=== PATIENT | male | born 1945 | race Caucasian/White ===

== ENCOUNTER 2019-12-29 12:20 | Emergency (ER) | payer OTHER ==
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
[2019-12-29 13:36] VITALS: BP 132/62
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
== END 2019-12-29 13:37 | disposition home or self-care (01) ==
LOC: ED 12:20
DX: S82.241A Displaced spiral fracture of shaft of right tibia, initial encounter for closed fracture (principal); S82.431A Displaced oblique fracture of shaft of right fibula, initial encounter for closed fracture; W22.09XA Striking against other stationary object, initial encounter; I10 Essential (primary) hypertension; Z99.3 Dependence on wheelchair
CPT/HCPCS: 99282; 99284

== ENCOUNTER 2021-06-10 10:54 | Inpatient (IN) | payer OTHER ==
[2021-06-10 11:36] LABS: BASOPHILS % (AUTO) 0.6 %; EOSINOPHILS # (AUTO) 0.1 10^3/uL (0.0-0.7); EOSINOPHILS % (AUTO) 0.9 %; HCT - HEMATOCRIT 29.3 % (42.0-52.0); LYMPHOCYTES # (AUTO) 0.5 10^3/uL (1.5-3.5); LYMPHOCYTES % (AUTO) 7.6 %; MEAN CORPUSCULAR HEMOGLOBIN 34.4 pg (27.0-31.0); MEAN CORPUSCULAR HGB CONC 34.1 g/dL (32.0-36.0); MEAN CORPUSCULAR VOLUME 100.7 fL (80.0-94.0); MEAN PLATELET VOLUME 9.2 fL (7.4-11.4); MONOCYTES # (AUTO) 0.5 10^3/uL (0.0-1.0); MONOCYTES % (AUTO) 7.6 %; NEUTROPHILS # (AUTO) 5.4 10^3/uL (1.5-6.6); NEUTROPHILS % (AUTO) 82.7 %; PLT - PLATELET COUNT 78 10^3/uL (130-450); RED BLOOD COUNT 2.91 10^6/uL (4.70-6.10); RED CELL DISTRIBUTION WIDTH 14.6 % (12.0-15.0); WHITE BLOOD COUNT 6.6 x10^3/uL (4.8-10.8)
[2021-06-10 11:37] LABS: BILIRUBIN,URINE NEGATIVE (NEGATIVE); GLUCOSE, URINE (UA) NEGATIVE (NEGATIVE); KETONES,URINE (UA) NEGATIVE (NEGATIVE); LEUKOCYTE ESTERASE, URINE LARGE (NEGATIVE); NITRITE,URINE POSITIVE (NEGATIVE); OCCULT BLOOD,URINE LARGE (NEGATIVE); PROTEIN,URINE 100 mg/dL (NEGATIVE); UROBILINOGEN,URINE 0.2 (NORMAL) E.U./dL (NORMAL)
[2021-06-10] MEDS ORDERED: SODIUM CHLORIDE 0.9% 1,000 ML IV STA (11:39)
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
[2021-06-10 11:40] LABS: CLARITY,URINE SL. CLOUDY (CLEAR)
[2021-06-10 11:43] LABS: BACTERIA,URINE Few /HPF (None Seen); SQUAMOUS EPITHELIAL CELL,UR RARE Squamous (<= Few)
--- NOTE | 2021-06-10 11:48 | XRAY Report ---
PROCEDURE: Chest 1 View X-Ray INDICATIONS: chest pain TECHNIQUE: One view of the chest was acquired. COMPARISON: None. FINDINGS: Surgical changes and devices: Extensive thoracic spine fusion is seen with surgical hardware in place .. Lungs and pleura: No pleural effusions or pneumothorax. There is mild pulmonary vascular congestion. Increased bronchovascular markings in bilateral hilar region are seen with mild bronchial wall thick ening. No definite focal infiltrate. Mediastinum: Mediastinal contours appear normal. Heart size is enlarged. Bones and chest wall: No suspicious bony lesions. Overlying soft tissues appear unremarkable. IMPRESSION: Finding is concerning for mild reactive airway disease such as bronchitis or asthma. No definite foca l infiltrate. No pneumothorax. Cardiomegaly and mild pulmonary vascular congestion. Reviewed by: Otilio Hooper MD on 06/10/2021 11:47 AM PST Approved by: Otilio Hooper MD on 06/10/2021 11:47 AM PST Station ID: [id number]
[2021-06-10 11:49] LABS: ALBUMIN 3.6 g/dL (3.2-5.5); BILIRUBIN,TOTAL 0.7 mg/dL (0.2-1.0); CALCIUM 9.3 mg/dL (8.5-10.3); CREATININE 5.9 mg/dL (0.6-1.2); POTASSIUM 4.6 mmol/L (3.5-5.0); TOTAL PROTEIN 7.1 g/dL (6.7-8.2)
[2021-06-10] MEDS ORDERED: IOVERSOL 320 100 ML VIAL IVP ONE (11:50)
--- NOTE | 2021-06-10 12:57 | CT Report ---
PROCEDURE: Abdomen/Pelvis WO INDICATIONS: uti; THEODORA TECHNIQUE: Noncontrast 5 mm thick sections acquired from the diaphragms to the symphysis. 5 mm coronal and sagi ttal reformats were then performed. For radiation dose reduction, the following was used: automated exposure control, adjustment of mA and/or kV according to patient size. COMPARISON: None. FINDINGS: Image quality: There is metallic streak artifact from patient's surgical hardware in the thoracolumba r spine. ABDOMEN: Lung bases: There is atelectasis in the lower lobes, left greater than right. A large hiatal hernia is partially visualized. Heart size is normal. Solid organs: Noncontrast evaluation of the liver demonstrates no focal hepatic lesions. All bladder appears within normal limits without calcified gallstones. Pancreas is normal in contours. No adren al nodules. The spleen is enlarged, measuring up to 17.2 cm. The kidneys are atrophic in size, sever e on the right and moderate on the left. No renal stones. There is mild right pelviectasis without ca lyceal dilatation. There are foci of gas within the right renal calyces. There is nonspecific perinep hric and perirenal fat stranding. There is a small stone in the distal right ureter measuring up to 0 .3 cm but there is no hydroureter. There is also mild left pelviectasis and mild dilatation of the le ft ureter without a discrete ureteral stone identified. There is mild nonspecific left perinephric an d perirenal fat stranding also demonstrated. Peritoneum and bowel: Small and large bowel loops demonstrate normal wall thickness and caliber. No evidence of appendicitis. There is colonic diverticulosis throughout the colon without acute divertic ulitis. No free fluid or air. Nodes and vessels: No retroperitoneal or mesenteric adenopathy by size criteria. Aorta and inferior vena cava are normal in caliber. Miscellaneous: No ventral hernias. PELVIS: Genitourinary: The urinary bladder is nondistended with a Harris catheter present. There is associated mild fat stranding along the bladder wall suggestive of a cystitis. There is intraluminal gas within the bladder likely from catheterization. Miscellaneous: No inguinal hernias or adenopathy. There is moderate fatty atrophy of the visualized paraspinous, pelvic, and lower extremity musculature. Bones: No suspicious bony lesions. There is osteopenia. Postsurgical changes are partially visualiz ed status post posterior fixation and fusion in the lower thoracic and upper lumbar spine. There is a severe anterior compression deformity of the L1 vertebral body which is likely nonacute. No definite acute fractures. IMPRESSION: 1. Nondistended bladder with a Harris catheter in place. There is mild bladder wall thickening suggest tawanna of a cystitis. 2. Mild bilateral perinephric and perirenal fat stranding are nonspecific but pyelonephritis cannot b e excluded. 3. Small foci of gas within the right renal cortical system are nonspecific and may reflect retrograd e gas extension from the bladder, but the differential includes infection from a gas-forming organism . 4. Small urinary stone in the distal right ureter without associated hydroureter. Mild pelviectasis o f the right renal collecting system is demonstrated without calyceal dilatation to suggest definite h ydronephrosis. 5. Mild dilatation of the left renal collection system and left ureter without an obstructing stone i dentified. 6. Large hiatal hernia and bibasilar atelectasis. 7. Colonic diverticulosis. Reviewed by: Dalton Palomo MD on 06/10/2021 12:55 PM PST Approved by: Dalton Palomo MD on 06/10/2021 12:55 PM PST Station ID: [id number]
[2021-06-10] MEDS ORDERED: cefTRIAXone 1 GM in SODIUM CHLORIDE 0.9% MINIBAG 100 ML IV STA (13:02)
[2021-06-10 14:18] LABS: B. PARAPERTUSSIS- RESP PCR PAN NOT DETECTED; B. PERTUSSIS- RESP PCR PANEL NOT DETECTED; C. PNEUMONIAE- RESP PCR PANEL NOT DETECTED; CORONAVIRUS 229E-RESP PCR NOT DETECTED; CORONAVIRUS HKU1-RESP PCR NOT DETECTED; CORONAVIRUS NL63-RESP PCR NOT DETECTED; CORONAVIRUS OC43-RESP PCR NOT DETECTED; HUMAN METAPNEUMOVIRUS NOT DETECTED; INFLUENZA A- RESP PCR PANEL NOT DETECTED; INFLUENZA B - RESP PCR PANEL NOT DETECTED; M. PNEUMONIAE- RESP PCR PANEL NOT DETECTED; PARAINFLUENZA VIRUS 1 NOT DETECTED; PARAINFLUENZA VIRUS 2 NOT DETECTED; PARAINFLUENZA VIRUS 3 NOT DETECTED; PARAINFLUENZA VIRUS 4 NOT DETECTED; RHINOVIRUS/ENTEROVIRUS NOT DETECTED; RSV- RESP PCR PANEL NOT DETECTED; SARS-CoV-2 -RESP PCR PANEL NOT DETECTED
[2021-06-10] MEDS ORDERED: ONDANSETRON 4 MG/2 ML VIAL IVP PRN (16:19)
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
[2021-06-10] MEDS ORDERED: MORPHINE 2 MG/ML CARPUJECT IVP PRN (16:45)
[2021-06-10 16:52] LABS: MAGNESIUM 2.3 mg/dL (1.7-2.8); PHOSPHORUS 6.4 mg/dL (2.5-4.6)
[2021-06-10 16:58] LABS: MUDS CUTOFF CONCENTRATIONS CUTOFF CONC BELOW:
[2021-06-10] MEDS ORDERED: SODIUM CHLORIDE 0.9% 1,000 ML IV SCH (17:00)
[2021-06-10 17:10] LABS: AMPHETAMINE SCREEN,URINE NEGATIVE (NEGATIVE); BARBITURATE SCREEN,UR NEGATIVE (NEGATIVE); BENZODIAZEPINES SCREEN, URINE NEGATIVE (NEGATIVE); COCAINE SCREEN URINE NEGATIVE (NEGATIVE); METHADONE SCREEN, URINE NEGATIVE (NEGATIVE); METHAMPHETAMINES SCREEN, URINE NEGATIVE (NEGATIVE); OPIATE SCREEN, URINE NEGATIVE (NEGATIVE); OXYCODONE SCREEN, URINE NEGATIVE (NEGATIVE); PROPOXYPHENE SCREEN, URINE NEGATIVE (NEGATIVE); THC CANNABINOID SCREEN, URINE NEGATIVE (NEGATIVE); TRICYCLIC ANTIDEPRESSANT,URINE NEGATIVE (NEGATIVE)
[2021-06-10] MEDS: SODIUM CHLORIDE FLUSH 0.9% 10 ML SYRINGE IVP SCH (17:25)
[2021-06-10] MEDS: ACETAMINOPHEN 325 MG TABLET PO PRN ×2 (17:32→22:06)
[2021-06-10] MEDS ORDERED: hydrALAZINE INJ 20 MG/ML VIAL IVP PRN (17:39)
[2021-06-10] MEDS ORDERED: LIDOCAINE PATCH 5% TOP PRN (18:00)
[2021-06-10] MEDS: SEVELAMER 800 MG TABLET PO SCH (18:43)
[2021-06-10] MEDS: SODIUM CHLORIDE 0.9% 1,000 ML IV SCH (18:43)
--- NOTE | 2021-06-10 18:55 | PHARMACY PROGRESS NOTE ---
- Best Possible Medication History Admit Date and Time: 06/10/21 1619 Processed by: Pharmacy Medication History completed: Yes Patient Interview: Pt unable to participate Secondary Source(s): Pharmacy records, Insurance records ([employer] REQUEST) As the person ultimately responsible for medication therapy, providers are able to order a medication from an existing home medication list in [facility] via the "Reconcile Routine" prior to Confirmation of that medication by operations support professionals. Such practice is discouraged except when the physician, in their clinical judgment, deems that a medical need exists for a medication without regard to previous use.
[2021-06-10] MEDS: ATORVASTATIN 40 MG TABLET PO SCH (20:13)
[2021-06-10] MEDS: SENNA 8.6 MG TABLET PO SCH (20:13)
[2021-06-10] MEDS ORDERED: HEPARIN 5,000 UNIT/ML VIAL SUBQ SCH (21:00)
[2021-06-11] MEDS ORDERED: traZODone 50 MG TABLET PO STA (00:02)
[2021-06-11] MEDS: SODIUM CHLORIDE FLUSH 0.9% 10 ML SYRINGE IVP SCH ×4 (01:30→23:36)
[2021-06-11] MEDS: SODIUM CHLORIDE 0.9% 1,000 ML IV SCH (04:48)
[2021-06-11 05:20] LABS: BASOPHILS % (AUTO) 0.4 %; EOSINOPHILS # (AUTO) 0.2 10^3/uL (0.0-0.7); EOSINOPHILS % (AUTO) 2.3 %; HGB - HEMOGLOBIN 9.9 g/dL (14.0-18.0); LYMPHOCYTES # (AUTO) 0.5 10^3/uL (1.5-3.5); LYMPHOCYTES % (AUTO) 6.7 %; MEAN CORPUSCULAR HEMOGLOBIN 33.7 pg (27.0-31.0); MEAN PLATELET VOLUME 9.7 fL (7.4-11.4); MONOCYTES # (AUTO) 0.5 10^3/uL (0.0-1.0); MONOCYTES % (AUTO) 7.8 %; NEUTROPHILS # (AUTO) 5.7 10^3/uL (1.5-6.6); NEUTROPHILS % (AUTO) 82.4 %; PLT - PLATELET COUNT 83 10^3/uL (130-450); RED BLOOD COUNT 2.94 10^6/uL (4.70-6.10); RED CELL DISTRIBUTION WIDTH 14.6 % (12.0-15.0); WHITE BLOOD COUNT 6.9 x10^3/uL (4.8-10.8)
[2021-06-11 05:33] LABS: CALCIUM 8.9 mg/dL (8.5-10.3); CREATININE 5.7 mg/dL (0.6-1.2); MAGNESIUM 2.2 mg/dL (1.7-2.8); PHOSPHORUS 6.4 mg/dL (2.5-4.6); POTASSIUM 4.8 mmol/L (3.5-5.0)
[2021-06-11] MEDS: LEVOTHYROXINE 100 MCG TABLET PO SCH (07:15)
[2021-06-11] MEDS: ACETAMINOPHEN 325 MG TABLET PO PRN ×2 (07:16→21:16)
[2021-06-11] MEDS ORDERED: ALBUTEROL NEB 2.5 MG/3 ML INH PRN (07:20)
[2021-06-11] MEDS: IPRATROPIUM/ALBUTEROL 3 ML NEB INH PRN (07:53)
[2021-06-11] MEDS ORDERED: LABETALOL 20 MG/4 ML SYRINGE IVP ONE ×2 (07:55→08:05)
[2021-06-11] MEDS ORDERED: NITROGLYCERIN 2% PASTE TOP ONE (08:00)
[2021-06-11] MEDS: SEVELAMER 800 MG TABLET PO SCH ×2 (08:01→17:30)
[2021-06-11] MEDS: SENNA 8.6 MG TABLET PO SCH (08:01)
--- NOTE | 2021-06-11 08:45 | XRAY Report ---
PROCEDURE: Chest 1 View X-Ray INDICATIONS: SOB TECHNIQUE: One view of the chest was acquired. COMPARISON: 06/10/2021 FINDINGS: Surgical changes and devices: Karina rods. Lungs and pleura: Significant interval worsening of pulmonary status. Consider bilateral pulmonary ed frank versus bilateral pneumonia. Mediastinum: Mediastinal contours appear normal. Cardiomegaly. Bones and chest wall: No suspicious bony lesions. Overlying soft tissues appear unremarkable. IMPRESSION: Significant interval worsening of pulmonary status. Consider bilateral pulmonary edema versus bilater al pneumonia. Reviewed by: Paddy Hart MD on 06/11/2021 8:43 AM PST Approved by: Paddy Hart MD on 06/11/2021 8:43 AM PST Station ID: [id number]
[2021-06-11] MEDS ORDERED: cefTRIAXone 1 GM in SODIUM CHLORIDE 0.9% MINIBAG 100 ML IV SCH (09:00)
[2021-06-11] MEDS: amLODIPine 5 MG TABLET PO SCH (09:10)
[2021-06-11] MEDS: ASPIRIN EC 81 MG TABLET PO SCH (09:10)
[2021-06-11] MEDS: MEROPENEM 1 GM in SODIUM CHLORIDE 0.9% MINIBAG 100 ML IV SCH ×2 (09:22→21:15)
[2021-06-11] MEDS: BISACODYL 10 MG SUPP PR SCH (09:22)
[2021-06-11] MEDS ORDERED: FUROSEMIDE 20 MG/2 ML VIAL IVP ONE (09:29)
[2021-06-11] MEDS ORDERED: AZITHROMYCIN 250 MG TABLET PO ONE (10:00)
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
[2021-06-11] MEDS: TORSEMIDE 20 MG TABLET PO SCH (10:57)
[2021-06-11] MEDS: ATORVASTATIN 40 MG TABLET PO SCH (21:16)
[2021-06-11] MEDS: SODIUM CHLORIDE FLUSH 0.9% 10 ML SYRINGE IVP PRN (21:20)
[2021-06-11] MEDS: ZOLPIDEM 5 MG TABLET PO PRN (22:27)
[2021-06-12] MEDS: ACETAMINOPHEN 325 MG TABLET PO PRN ×3 (03:47→21:08)
[2021-06-12] MEDS: IPRATROPIUM/ALBUTEROL 3 ML NEB INH PRN (04:03)
[2021-06-12 05:49] LABS: BASOPHILS % (AUTO) 0.6 %; EOSINOPHILS # (AUTO) 0.1 10^3/uL (0.0-0.7); EOSINOPHILS % (AUTO) 0.8 %; HCT - HEMATOCRIT 28.6 % (42.0-52.0); HGB - HEMOGLOBIN 9.5 g/dL (14.0-18.0); LYMPHOCYTES # (AUTO) 0.3 10^3/uL (1.5-3.5); LYMPHOCYTES % (AUTO) 4.5 %; MEAN CORPUSCULAR HEMOGLOBIN 33.7 pg (27.0-31.0); MEAN CORPUSCULAR HGB CONC 33.2 g/dL (32.0-36.0); MEAN CORPUSCULAR VOLUME 101.4 fL (80.0-94.0); MEAN PLATELET VOLUME 9.7 fL (7.4-11.4); MONOCYTES # (AUTO) 0.5 10^3/uL (0.0-1.0); MONOCYTES % (AUTO) 7.5 %; NEUTROPHILS # (AUTO) 6.1 10^3/uL (1.5-6.6); NEUTROPHILS % (AUTO) 85.9 %; PLT - PLATELET COUNT 99 10^3/uL (130-450); RED BLOOD COUNT 2.82 10^6/uL (4.70-6.10); RED CELL DISTRIBUTION WIDTH 14.4 % (12.0-15.0); WHITE BLOOD COUNT 7.1 x10^3/uL (4.8-10.8)
[2021-06-12 06:03] LABS: CREATININE 5.8 mg/dL (0.6-1.2); MAGNESIUM 2.1 mg/dL (1.7-2.8); PHOSPHORUS 6.4 mg/dL (2.5-4.6); POTASSIUM 4.6 mmol/L (3.5-5.0)
[2021-06-12] MEDS: LEVOTHYROXINE 100 MCG TABLET PO SCH (06:13)
[2021-06-12] MEDS ORDERED: LEVALBUTEROL 1.25 MG/3 ML NEB INH PRN (07:15)
[2021-06-12] MEDS: amLODIPine 5 MG TABLET PO SCH (09:04)
[2021-06-12] MEDS: SENNA 8.6 MG TABLET PO SCH (09:05)
[2021-06-12] MEDS: TORSEMIDE 20 MG TABLET PO SCH (09:05)
[2021-06-12] MEDS: ASPIRIN EC 81 MG TABLET PO SCH (09:06)
[2021-06-12] MEDS: AZITHROMYCIN 250 MG TABLET PO SCH (09:06)
[2021-06-12] MEDS: SEVELAMER 800 MG TABLET PO SCH ×2 (09:06→17:00)
[2021-06-12] MEDS: BISACODYL 10 MG SUPP PR SCH (09:07)
[2021-06-12] MEDS: SODIUM CHLORIDE FLUSH 0.9% 10 ML SYRINGE IVP SCH ×2 (09:09→17:00)
[2021-06-12] MEDS: MEROPENEM 1 GM in SODIUM CHLORIDE 0.9% MINIBAG 100 ML IV SCH (09:12)
[2021-06-12] MEDS: CEFEPIME 1 GM in SODIUM CHLORIDE 0.9% MINIBAG 100 ML IV SCH (10:40)
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
[2021-06-12] MEDS: ATORVASTATIN 40 MG TABLET PO SCH (21:03)
[2021-06-12] MEDS: SODIUM CHLORIDE FLUSH 0.9% 10 ML SYRINGE IVP PRN (21:09)
[2021-06-12] MEDS: ZOLPIDEM 5 MG TABLET PO PRN (21:17)
[2021-06-13] MEDS: SODIUM CHLORIDE FLUSH 0.9% 10 ML SYRINGE IVP SCH ×4 (00:39→23:51)
[2021-06-13 05:47] LABS: BASOPHILS % (AUTO) 0.6 %; EOSINOPHILS # (AUTO) 0.2 10^3/uL (0.0-0.7); EOSINOPHILS % (AUTO) 2.1 %; HCT - HEMATOCRIT 30.3 % (42.0-52.0); HGB - HEMOGLOBIN 10.2 g/dL (14.0-18.0); LYMPHOCYTES # (AUTO) 0.3 10^3/uL (1.5-3.5); LYMPHOCYTES % (AUTO) 4.5 %; MEAN CORPUSCULAR HGB CONC 33.7 g/dL (32.0-36.0); MEAN PLATELET VOLUME 9.8 fL (7.4-11.4); MONOCYTES # (AUTO) 0.6 10^3/uL (0.0-1.0); MONOCYTES % (AUTO) 7.7 %; PLT - PLATELET COUNT 120 10^3/uL (130-450); RED CELL DISTRIBUTION WIDTH 14.3 % (12.0-15.0); WHITE BLOOD COUNT 7.2 x10^3/uL (4.8-10.8)
[2021-06-13 05:55] LABS: CALCIUM 9.3 mg/dL (8.5-10.3); CREATININE 5.6 mg/dL (0.6-1.2); POTASSIUM 4.8 mmol/L (3.5-5.0)
[2021-06-13] MEDS: LEVOTHYROXINE 100 MCG TABLET PO SCH (06:21)
[2021-06-13] MEDS: TORSEMIDE 20 MG TABLET PO SCH (10:49)
[2021-06-13] MEDS: SENNA 8.6 MG TABLET PO SCH (10:49)
[2021-06-13] MEDS: AZITHROMYCIN 250 MG TABLET PO SCH (10:49)
[2021-06-13] MEDS: SEVELAMER 800 MG TABLET PO SCH ×2 (10:50→17:24)
[2021-06-13] MEDS: amLODIPine 5 MG TABLET PO SCH (10:53)
[2021-06-13] MEDS: ASPIRIN EC 81 MG TABLET PO SCH (10:55)
[2021-06-13] MEDS: CEFEPIME 1 GM in SODIUM CHLORIDE 0.9% MINIBAG 100 ML IV SCH (10:57)
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
[2021-06-13] MEDS: BISACODYL 10 MG SUPP PR SCH (14:23)
[2021-06-13] MEDS: ATORVASTATIN 40 MG TABLET PO SCH (21:07)
[2021-06-13] MEDS: ACETAMINOPHEN 325 MG TABLET PO PRN (23:50)
[2021-06-14 05:54] LABS: BASOPHILS # (AUTO) 0.1 10^3/uL (0.0-0.1); BASOPHILS % (AUTO) 0.9 %; EOSINOPHILS # (AUTO) 0.9 10^3/uL (0.0-0.7); EOSINOPHILS % (AUTO) 14.5 %; HCT - HEMATOCRIT 28.9 % (42.0-52.0); HGB - HEMOGLOBIN 9.2 g/dL (14.0-18.0); LYMPHOCYTES # (AUTO) 0.5 10^3/uL (1.5-3.5); LYMPHOCYTES % (AUTO) 7.7 %; MEAN CORPUSCULAR HEMOGLOBIN 33.2 pg (27.0-31.0); MEAN CORPUSCULAR HGB CONC 31.8 g/dL (32.0-36.0); MEAN CORPUSCULAR VOLUME 104.3 fL (80.0-94.0); MONOCYTES # (AUTO) 0.5 10^3/uL (0.0-1.0); MONOCYTES % (AUTO) 8.4 %; NEUTROPHILS # (AUTO) 3.9 10^3/uL (1.5-6.6); PLT - PLATELET COUNT 125 10^3/uL (130-450); RED BLOOD COUNT 2.77 10^6/uL (4.70-6.10); RED CELL DISTRIBUTION WIDTH 14.6 % (12.0-15.0); WHITE BLOOD COUNT 5.9 x10^3/uL (4.8-10.8)
[2021-06-14] MEDS: LEVOTHYROXINE 100 MCG TABLET PO SCH (07:41)
[2021-06-14] MEDS: ACETAMINOPHEN 325 MG TABLET PO PRN ×3 (07:44→23:46)
[2021-06-14] MEDS: SEVELAMER 800 MG TABLET PO SCH ×2 (07:47→16:42)
[2021-06-14] MEDS: SODIUM CHLORIDE FLUSH 0.9% 10 ML SYRINGE IVP SCH ×2 (08:45→16:42)
[2021-06-14] MEDS: CEFEPIME 1 GM in SODIUM CHLORIDE 0.9% MINIBAG 100 ML IV SCH (08:45)
[2021-06-14] MEDS: amLODIPine 5 MG TABLET PO SCH (08:47)
[2021-06-14] MEDS: TORSEMIDE 20 MG TABLET PO SCH (08:47)
[2021-06-14] MEDS: AZITHROMYCIN 250 MG TABLET PO SCH (08:47)
[2021-06-14] MEDS: ASPIRIN EC 81 MG TABLET PO SCH (08:47)
[2021-06-14] MEDS: BISACODYL 10 MG SUPP PR SCH (08:52)
[2021-06-14] MEDS ORDERED: ZINC OXIDE 20% OINT 30 GM TUBE TOP PRN (09:13)
[2021-06-14 09:53] LABS: CALCIUM 9.2 mg/dL (8.5-10.3); CREATININE 5.6 mg/dL (0.6-1.2); POTASSIUM 4.5 mmol/L (3.5-5.0)
[2021-06-14] MEDS: SENNA 8.6 MG TABLET PO SCH (10:16)
[2021-06-14] MEDS: SODIUM CHLORIDE FLUSH 0.9% 10 ML SYRINGE IVP PRN (12:42)
[2021-06-14] MEDS ORDERED: SODIUM CHLORIDE 0.45% 1,000 ML IV SCH (13:00)
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
--- NOTE | 2021-06-14 15:41 | XRAY Report ---
PROCEDURE: Chest 1 View X-Ray INDICATIONS: sputum, cough TECHNIQUE: One view of the chest was acquired. COMPARISON: 06/11/2021 FINDINGS: Surgical changes and devices: Partially visualized thoracolumbar spinal fixation hardware as before. Lungs and pleura: Improved aeration of the right mid lung and lower lobe. Left perihilar mild patch y consolidative opacity is noted and may be slightly increased; there is retrocardiac consolidation a s before. Possible small left pleural effusion. No pneumothorax Mediastinum: Cardiac silhouette and mediastinal contours grossly unchanged. Bones and chest wall: No suspicious bony lesions. Overlying soft tissues appear unremarkable. IMPRESSION: Improved aeration of the right midlung and lower lobe. Slightly increased left perihilar opacity sinc e 06/11/2021. Persistent retrocardiac consolidation is unchanged Reviewed by: Taurus Lowery MD on 06/14/2021 3:40 PM PST Approved by: Taurus Lowery MD on 06/14/2021 3:40 PM PST Station ID: [id number]
--- NOTE | 2021-06-14 15:43 | XRAY Report ---
PROCEDURE: Chest for Line Placement INDICATIONS: PICC line TECHNIQUE: One view of the chest was acquired. COMPARISON: Chest x-ray one view, 06/11/2021 and 06/14/2021. FINDINGS: Surgical changes and devices: There is a right-sided PICC line with the tip projecting to the area of SVC. Lungs and pleura: Bilateral interstitial infiltrates. There are basilar consolidations or atelectasi s. Small left effusion and trace right pleural effusion. No pneumothorax. Mediastinum: Mediastinal contours appear normal. Heart size is normal. Bones and chest wall: Thoracic and upper lumbar spine fusion. No suspicious bony lesions. Overlying soft tissues appear unremarkable. IMPRESSION: 1. The tip the right PICC is in the area of SVC. Reviewed by: Shane Tinoco MD on 06/14/2021 3:41 PM PST Approved by: Shane Tinoco MD on 06/14/2021 3:41 PM PST Station ID: [id number]
--- NOTE | 2021-06-14 15:57 | ANESTHESIA PROCEDURE NOTE ---
Anesth Central Line Template - Central Line Central Line Preparation: Consent Obtained, Time out completed, Ultrasound used, Sterile prep and drape Central line location: Right Basilic Central line type: PICC Double Lumen Central line catheter tip site resides: Subclavian vein Central line aftercare: Secured (statlock), Placement confirmed, No complications, Bundle checklist complete, Pt tolerated well
[2021-06-14] MEDS: ATORVASTATIN 40 MG TABLET PO SCH (20:09)
[2021-06-14] MEDS ORDERED: SENNA 8.6 MG TABLET PO SCH (21:00)
[2021-06-15] MEDS: ZOLPIDEM 5 MG TABLET PO PRN (00:27)
[2021-06-15] MEDS: SODIUM CHLORIDE FLUSH 0.9% 10 ML SYRINGE IVP SCH ×2 (01:51→09:22)
[2021-06-15] MEDS: LEVOTHYROXINE 100 MCG TABLET PO SCH (05:29)
[2021-06-15 05:35] LABS: EOSINOPHILS % (AUTO) 16.5 %; HCT - HEMATOCRIT 27.2 % (42.0-52.0); HGB - HEMOGLOBIN 8.9 g/dL (14.0-18.0); LYMPHOCYTES % (AUTO) 8.5 %; MEAN CORPUSCULAR HEMOGLOBIN 33.1 pg (27.0-31.0); MEAN CORPUSCULAR HGB CONC 32.7 g/dL (32.0-36.0); MEAN CORPUSCULAR VOLUME 101.1 fL (80.0-94.0); MEAN PLATELET VOLUME 9.5 fL (7.4-11.4); NEUTROPHILS % (AUTO) 64.4 %; PLT - PLATELET COUNT 151 10^3/uL (130-450); RED BLOOD COUNT 2.69 10^6/uL (4.70-6.10); RED CELL DISTRIBUTION WIDTH 14.3 % (12.0-15.0); WHITE BLOOD COUNT 6.1 x10^3/uL (4.8-10.8)
[2021-06-15 05:37] LABS: ABNORMAL LYMPHS % (MANUAL) 0 %; BAND NEUTROPHILS % (MANUAL) 0 %
[2021-06-15 05:50] LABS: POTASSIUM 4.7 mmol/L (3.5-5.0)
[2021-06-15 05:51] LABS: CREATININE 5.4 mg/dL (0.6-1.2)
[2021-06-15 05:54] LABS: EOSINOPHILS # (MANUAL) 1.3 10^3/uL (0-0.7); LYMPHOCYTES # (MANUAL) 0.4 10^3/uL (1.5-3.5); LYMPHOCYTES % (MANUAL) 6 %; MONOCYTES # (MANUAL) 0.4 10^3/uL (0.0-1.0); NEUTROPHILS # (MANUAL) 4.1 10^3/uL (1.5-6.6)
[2021-06-15 05:55] LABS: DIFFERENTIAL COMMENT MANUAL DIFFERENTIAL; PLATELET ESTIMATE, MANUAL NORMAL (130-450,000) (NORMAL); PLATELET MORPHOLOGY NORMAL APPEARANCE (NORMAL); RBC MORPHOLOGY (MULTIPLE) NORMAL APPEARANCE (NORMAL); WBC MORPHOLOGY (MULTIPLE) NORMAL APPEARANCE (NORMAL)
[2021-06-15 07:57] LABS: ABSOLUTE RETICS # AUTO 0.027 10^6/uL (0.020-0.110); RED BLOOD COUNT 2.73 10^6/uL (4.70-6.10); RETICULOCYTE COUNT % (AUTO) 0.98 % (0.5-2.3)
[2021-06-15 08:17] LABS: % IRON SATURATION 31 % (20-50); IRON 64 ug/dL (45-182); TOTAL IRON BINDING CAPACITY 209 ug/dL (250-450); TRANSFERRIN 149 mg/dL (180-329)
[2021-06-15] MEDS: BISACODYL 10 MG SUPP PR SCH (09:11)
[2021-06-15] MEDS: amLODIPine 5 MG TABLET PO SCH (09:14)
[2021-06-15] MEDS: SEVELAMER 800 MG TABLET PO SCH (09:14)
[2021-06-15] MEDS: ACETAMINOPHEN 325 MG TABLET PO PRN (09:15)
[2021-06-15] MEDS: TORSEMIDE 20 MG TABLET PO SCH (09:15)
[2021-06-15] MEDS: ASPIRIN EC 81 MG TABLET PO SCH (09:15)
[2021-06-15] MEDS: AZITHROMYCIN 250 MG TABLET PO SCH (09:16)
[2021-06-15] MEDS: CEFEPIME 1 GM in SODIUM CHLORIDE 0.9% MINIBAG 100 ML IV SCH (09:17)
--- NOTE | 2021-06-15 09:35 | CT Report ---
PROCEDURE: CHEST WO INDICATIONS: hemoptysis TECHNIQUE: Noncontrast 1mm axial images were acquired from the pulmonary apices to the posterior costophrenic an gles. Axial 5 mm soft tissue kernel reconstructions were performed as well as 8 mm axial MIP and cor onal and sagittal 5 mm reformations. For radiation dose reduction, the following was used: automate d exposure control, adjustment of mA and/or kV according to patient size. COMPARISON: CT abdomen and pelvis dated 06/10/2021 FINDINGS: Lungs: Scattered perihilar groundglass opacities. Diffuse peribronchial cuffing suggestive of nonspec ific bronchitis and/or reactive airways disease. Scattered subsegmental scarring/atelectasis. No acut e consolidation. Pleura: Small bilateral pleural effusions with adjacent atelectasis. Heart: Normal in size. Severe coronary atherosclerosis. No pericardial effusion. Lymph nodes: Normal. Thyroid: Not well seen Aorta: Normal in size. Tortuous appearance and scattered atheromatous calcifications. Pulmonary arteries: Normal. Esophagus: Large hiatal hernia. Bones: Diffuse spondolytic changes and facet arthropathy. No compression fracture. Upper abdomen: Focus of gas present within the right kidney/renal collecting system of unclear etiolo gy. There is bilateral renal atrophy. Mild bilateral gynecomastia. IMPRESSION: Small bilateral pleural effusions with adjacent atelectasis. Scattered groundglass opacities which are technically indeterminate, potentially this could represent pulmonary edema in the setting of chronic renal failure. This could also reflect pulmonary hemorrhag e related to Goodpasture's syndrome given the severe renal disease and clinical indication of hemopty sis. Please correlate clinically. If there is persistent clinical diagnostic uncertainty, recommend s hort interval radiographic follow-up after treatment for further assessment. Recommend clinical and l aboratory correlation to exclude underlying infection. Severe coronary atherosclerosis Large hiatal hernia Scattered foci of gas within the right renal collecting system unchanged. Unchanged differential as l isted on the prior study report, and recommend clinical and urinalysis correlation. CLINICAL RECOMMENDATION STATEMENTS: In patients <35 years with an ITN detected on CT, MRI, or extrathyroidal ultrasound, the Committee re commends further evaluation with dedicated thyroid ultrasound if the nodule is "e1 cm and has no susp icious imaging features, and if the patient has normal life expectancy. In patients "e35 years with an ITN detected on CT, MRI, or extrathyroidal ultrasound, the Committee r ecommends further evaluation with dedicated thyroid ultrasound if the nodule is "e1.5 cm and has no s uspicious imaging features, and if the patient has normal life expectancy. (ACR, 2014) Reviewed by: Taurus Lowery MD on 06/15/2021 9:34 AM PST Approved by: Taurus Lowery MD on 06/15/2021 9:34 AM PST Station ID: [id number]
[2021-06-15 12:37] VITALS: BP 161/70
--- NOTE | 2021-06-15 14:12 | Discharge Plan ---
Discharge Plan Problem Reviewed?: Yes Disposition: Home, Self Care Condition: Stable Prescriptions: Cefepime 1 gm IV DAILY #9 ml Sevelamer [Renagel] 800 mg PO BIDWM #30 tablet Diet: Regular Activity Restrictions: Activity as Tolerated Shower Restrictions: No (fall precaution) Assistance Devices: Wheelchair Instruction Topics: Cefepime injection, Sevelamer capsules or tablets Health Concerns: pyelonephritis, renal failure Plan of Treatment: You was prescribed Cefepime IV to home to finish the treatment course. you have PICC line for IV. Your daughter had experience and trained to have IV meds for you. gas plant worker help arrange to deliver medication Cefepime to you. You have a schedule to see your lepidopterist after tomorrow, please see Dr. Saunders on the schedule to discuss the care plan for your renal failure care. You may followup with your PCP to have CXR in one week to monitor your pneumonia. Care Goals: Stabilization, and improvement of your kidney function Assessment: Discussed the care plan with you, answered your question, you understood. you really hope to discharge to home on today. Additional Instructions or Follow Up instructions: You may follow-up with your PCP in 1 week, follow-up with your lepidopterist after tomorrow, Should your symptoms return or worsen, you may present to the ER or call 911 for help No Smoking: If you smoke, Please STOP! Call for help. Follow-up with: TARYN VILLEGAS [Primary Care Provider] -
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
== END 2021-06-15 15:35 | disposition home or self-care (01) | DRG 698 ==
LOC: ED 10:54 → MS2 16:19 → OBSVTOIN 06-12 13:28
PROVIDERS: ADMIT Nurse Practitioner Gerontology; ATTEND Nurse Practitioner Gerontology
PROC: 02HV33Z Insertion of Infusion Device into Superior Vena Cava, Percutaneous Approach (ICD-10-PCS; principal; 2021-06-14)
PROC: B548ZZA Ultrasonography of Superior Vena Cava, Guidance (ICD-10-PCS; 2021-06-14)
DX: T83.518A Infection and inflammatory reaction due to other urinary catheter, initial encounter (principal); J18.9 Pneumonia, unspecified organism; N10 Acute pyelonephritis; N18.5 Chronic kidney disease, stage 5; I12.0 Hypertensive chronic kidney disease with stage 5 chronic kidney disease or end stage renal disease; N20.1 Calculus of ureter; G82.20 Paraplegia, unspecified; R04.2 Hemoptysis; Z16.30 Resistance to unspecified antimicrobial drugs; G90.4 Autonomic dysreflexia; B96.5 Pseudomonas (aeruginosa) (mallei) (pseudomallei) as the cause of diseases classified elsewhere; S24.103S Unspecified injury at T7-T10 level of thoracic spinal cord, sequela; D64.9 Anemia, unspecified; E03.9 Hypothyroidism, unspecified; E78.5 Hyperlipidemia, unspecified; Z20.822 Contact with and (suspected) exposure to COVID-19; Z79.899 Other long term (current) drug therapy; Z87.440 Personal history of urinary (tract) infections
CPT/HCPCS: 0202U; 36415; 51702; 71045; 71250; 74176; 80048; 80053; 80306; 81001; 82607; 82728; 83540; 83605; 83615; 83690; 83735; 84100; 84443; 84466; 85025; 85045; 87040; 87077; 87086; 87181; 94640; 96365; 96366; 96367; 96375; 99284; 99285; A9270; C1751; G0378; J2185; 81003

== ENCOUNTER 2022-02-16 12:25 | Outpatient (CLI) | payer OTHER | END 2022-02-16 12:26 | disposition short-term general hospital (02) | LOC: EMS 12:25 | DX: R41.82 Altered mental status, unspecified (principal); R44.3 Hallucinations, unspecified; R09.89 Other specified symptoms and signs involving the circulatory and respiratory systems | CPT/HCPCS: A0425; A0429 ==

== ENCOUNTER 2022-03-28 14:21 | Outpatient (CLI) | payer OTHER ==
[2022-03-28 14:40] LABS: BASOPHILS # (AUTO) 0.1 10^3/uL (0.0-0.1); BASOPHILS % (AUTO) 0.7 %; EOSINOPHILS # (AUTO) 0.6 10^3/uL (0.0-0.7); EOSINOPHILS % (AUTO) 8.3 %; HCT - HEMATOCRIT 30.8 % (42.0-52.0); HGB - HEMOGLOBIN 9.8 g/dL (14.0-18.0); LYMPHOCYTES # (AUTO) 0.6 10^3/uL (1.5-3.5); LYMPHOCYTES % (AUTO) 8.6 %; MEAN CORPUSCULAR HEMOGLOBIN 32.3 pg (27.0-31.0); MEAN CORPUSCULAR HGB CONC 31.8 g/dL (32.0-36.0); MEAN CORPUSCULAR VOLUME 101.7 fL (80.0-94.0); MONOCYTES # (AUTO) 0.7 10^3/uL (0.0-1.0); MONOCYTES % (AUTO) 10.5 %; NEUTROPHILS # (AUTO) 4.8 10^3/uL (1.5-6.6); PLT - PLATELET COUNT 151 10^3/uL (130-450); RED BLOOD COUNT 3.03 10^6/uL (4.70-6.10); RED CELL DISTRIBUTION WIDTH 19.4 % (12.0-15.0); WHITE BLOOD COUNT 6.8 x10^3/uL (4.8-10.8)
[2022-03-28 15:32] LABS: CALCIUM 8.9 mg/dL (8.5-10.3); CREATININE 3.9 mg/dL (0.6-1.2); CRP - C-REACTIVE PROTEIN 7.7 mg/dL (0-1.0); POTASSIUM 4.7 mmol/L (3.5-5.0)
== END 2022-03-28 14:22 | disposition home or self-care (01) ==
LOC: LAB.R 14:21
PROVIDERS: ATTEND Internal Medicine Infectious Disease
DX: M86.18 Other acute osteomyelitis, other site (principal); L89.159 Pressure ulcer of sacral region, unspecified stage
CPT/HCPCS: 80048; 85025; 85651; 86140

== ENCOUNTER 2023-05-29 08:00 | Outpatient (CLI) | payer OTHER | END 2023-05-29 23:59 | disposition home or self-care (01) | LOC: LAB.R 08:00 | PROVIDERS: ATTEND Student in an Organized Health Care Education/Training Program | DX: S31.819A Unspecified open wound of right buttock, initial encounter (principal) | CPT/HCPCS: 87070; 87077; 87181; 87205 ==

== ENCOUNTER 2024-01-26 08:00 | Outpatient (CLI) | payer OTHER ==
[2024-01-26 20:18] LABS: CALCIUM 8.9 mg/dL (8.5-10.3); CREATININE 6.4 mg/dL (0.6-1.3); POTASSIUM 3.4 mmol/L (3.5-4.5)
== END 2024-01-26 23:59 | disposition home or self-care (01) ==
LOC: LAB.R 08:00
PROVIDERS: ATTEND Student in an Organized Health Care Education/Training Program
DX: N18.6 End stage renal disease (principal)
CPT/HCPCS: 80048